=== PATIENT | male | born 1955 | race Hispanic/Latino ===

== ENCOUNTER 2018-06-18 21:28 | Emergency (ER) | payer MEDICAID, OTHER ==
[~2018-06-18 21:28] MED LIST: AMLO5TAB7 PO; ASPI-1005 PO; ASPI-555 PO; ATOR10 PO; FERR325T22 PO; FURO40TA5 PO; HYDR-4153 PO; INSU100I3 SQ; METO25 PO; TAMS0.4C32 PO
[2018-06-18] MEDS ORDERED: ACETAMINOPHEN-CODEINE ELIXIR 5 ML UDCUP ONE (22:01)
== END 2018-06-18 22:19 | disposition home or self-care (01) ==
LOC: EDH 21:28
DX: N39.0 Urinary tract infection, site not specified (principal); I10 Essential (primary) hypertension; E11.9 Type 2 diabetes mellitus without complications; Z89.511 Acquired absence of right leg below knee

== ENCOUNTER 2018-06-29 16:06 | Inpatient (IN) | payer OTHER ==
[~2018-06-29] VITALS: Ht 167.6 cm; Wt 93.0 kg
[2018-06-29 17:33] LABS: APPEARANCE,URINE Clear (CLEAR); BASOPHILS % (AUTO) 0.5 % (0.0-5.0); BILIRUBIN,URINE Negative (NEGATIVE); COLOR,URINE Dark Yellow (YELLOW); EOSINOPHILS % (AUTO) 0.8 % (0.0-8.0); GLUCOSE, URINE (UA) Negative (NEGATIVE); HEMATOCRIT 34.6 % (42-54); KETONES,URINE Negative (NEGATIVE); LEUKOCYTE ESTERASE ,URINE Trace (NEGATIVE); MEAN CORPUSCULAR HEMOGLOBIN 31.8 pg (27.0-33.0); MEAN CORPUSCULAR HGB CONC 35.3 g/dL (32.0-36.0); MONOCYTES % (AUTO) 8.9 % (3.0-13.0); NEUTROPHILS % (AUTO) 80.8 % (40.0-77.0); NITRATE,URINE Positive (NEGATIVE); OCCULT BLOOD,URINE Negative (NEGATIVE); PLATELET COUNT (AUTO) 271 K/uL (130-400); PROTEIN,URINE POS 2+ (NEGATIVE); RED BLOOD CELL COUNT(AUTO) 3.84 MIL/uL (4.50-6.20); RED CELL DISTRIBUTION WIDTH 12.8 % (11.0-15.5); WHITE BLOOD COUNT (AUTO) 7.6 K/uL (4.8-10.8)
[2018-06-29 17:41] LABS: CREATININE 1.4 mg/dL (0.5-1.5); POTASSIUM 4.2 mmol/L (3.5-5.1)
[2018-06-29] MEDS ORDERED: CEFTRIAXONE SODIUM 1 GM ONE (18:22)
[2018-06-29] MEDS ORDERED: SODIUM CHLORIDE 0.9% 1000ML 1,000 ML IV ONE (18:22)
[2018-06-29] MEDS ORDERED: SODIUM CHLORIDE 0.9% 50 ML IV ONE (18:22)
[2018-06-29 18:30] LABS: BACTERIA,URINE Rare /HPF (None Seen); RBC,URINE 0-1 /HPF (0-1)
[2018-06-29 18:31] LABS: SQUAMOUS EPITHELIAL CELL,UR Rare /HPF (0-2)
[2018-06-29 18:32] LABS: MUCUS,URINE Rare LPF (None Seen)
[2018-06-29] MEDS ORDERED: MORPHINE SULFATE 2 MG/ML 1ML SYG IV PRN (18:45)
[2018-06-29] MEDS ORDERED: ACETAMINOPHEN 325 MG TAB PO PRN (18:45)
[2018-06-29] MEDS ORDERED: ONDANSETRON HCL 4 MG/2 ML VIAL IV PRN (18:45)
[2018-06-29] MEDS ORDERED: ZOSYN 3.375GM+NS 50ML 50 ML IV SCH (21:00)
[2018-06-29 22:30] VITALS: BP 185/83
[2018-06-29] MEDS: SODIUM CHLORIDE 0.9% 1000ML 1,000 ML IV SCH (23:44)
[2018-06-29] MEDS: LEVOFLOXACIN 500 MG/D5W 100 ML 100 ML IV SCH (23:45)
[2018-06-30] VITALS (7 sets, daily range): BP systolic 132–187; BP diastolic 77–95
[2018-06-30 04:02] LABS: BASOPHILS % (AUTO) 0.7 % (0.0-5.0); EOSINOPHILS % (AUTO) 1.8 % (0.0-8.0); HEMATOCRIT 32.4 % (42-54); LYMPHOCYTES % (AUTO) 10.7 % (21.0-51.0); MEAN CORPUSCULAR HEMOGLOBIN 31.3 pg (27.0-33.0); MEAN CORPUSCULAR VOLUME 89.5 fL (79-99); MONOCYTES % (AUTO) 11.6 % (3.0-13.0); NEUTROPHILS % (AUTO) 75.2 % (40.0-77.0); PLATELET COUNT (AUTO) 211 K/uL (130-400); RED BLOOD CELL COUNT(AUTO) 3.62 MIL/uL (4.50-6.20); RED CELL DISTRIBUTION WIDTH 12.6 % (11.0-15.5); WHITE BLOOD COUNT (AUTO) 7.1 K/uL (4.8-10.8)
[2018-06-30 04:24] LABS: ALBUMIN 2.9 g/dL (3.5-5.0); BILIRUBIN,TOTAL 0.4 mg/dL (0.2-1.0); CREATININE 1.5 mg/dL (0.5-1.5); POTASSIUM 3.8 mmol/L (3.5-5.1); TOTAL PROTEIN, SERUM 5.8 g/dL (6.0-8.3)
[2018-06-30] MEDS: INSULIN HUMULIN R 100 UNIT/ML 3ML SQ SCH ×4 (07:20→20:24)
[2018-06-30] MEDS: ENOXAPARIN SODIUM 40 MG/0.4 ML SYRINGE SQ SCH (09:19)
[2018-06-30] MEDS: PANTOPRAZOLE SODIUM 40 MG TABLET.DR PO SCH (09:19)
[2018-06-30] MEDS: SODIUM CHLORIDE 0.9% 1000ML 1,000 ML IV SCH ×2 (14:52→20:22)
[2018-06-30] MEDS: CEFTRIAXONE SODIUM 1 GM IVP SCH (17:02)
[2018-06-30] MEDS: TAMSULOSIN HCL 0.4 MG CAP.ER.24H PO SCH (17:02)
[2018-06-30] MEDS: LEVOFLOXACIN 500 MG/D5W 100 ML 100 ML IV SCH (20:20)
[2018-07-01 04:00] VITALS: BP 147/80
[2018-07-01 04:15] LABS: MEAN CORPUSCULAR HEMOGLOBIN 31.4 pg (27.0-33.0); MEAN CORPUSCULAR HGB CONC 34.6 g/dL (32.0-36.0); MEAN CORPUSCULAR VOLUME 90.8 fL (79-99); PLATELET COUNT (AUTO) 230 K/uL (130-400); RED BLOOD CELL COUNT(AUTO) 3.74 MIL/uL (4.50-6.20); RED CELL DISTRIBUTION WIDTH 12.5 % (11.0-15.5); WHITE BLOOD COUNT (AUTO) 7.2 K/uL (4.8-10.8)
[2018-07-01 04:27] LABS: CREATININE 1.4 mg/dL (0.5-1.5); CRP QUANTITATIVE 6.5 mg/L (0.00-9.0); POTASSIUM 3.8 mmol/L (3.5-5.1)
[2018-07-01 05:19] LABS: ERYTHROCYTE SEDIMENTATION RATE 9 MM/HR (0-20)
[2018-07-01] MEDS: INSULIN HUMULIN R 100 UNIT/ML 3ML SQ SCH ×4 (06:01→21:00)
[2018-07-01 07:50] VITALS: BP 182/90
[2018-07-01] MEDS: ENOXAPARIN SODIUM 40 MG/0.4 ML SYRINGE SQ SCH (09:57)
[2018-07-01] MEDS: TAMSULOSIN HCL 0.4 MG CAP.ER.24H PO SCH (09:58)
[2018-07-01] MEDS: PANTOPRAZOLE SODIUM 40 MG TABLET.DR PO SCH (09:58)
[2018-07-01] MEDS: SODIUM CHLORIDE 0.9% 1000ML 1,000 ML IV SCH ×2 (10:09→23:51)
[2018-07-01 11:25] VITALS: BP 162/83
[2018-07-01] MEDS: CEFTRIAXONE SODIUM 1 GM IVP SCH (15:51)
[2018-07-01 16:00] VITALS: BP 164/87
[2018-07-01 19:42] VITALS: BP 143/77
[2018-07-01] MEDS: METOPROLOL TARTRATE 25 MG TAB PO SCH (20:28)
[2018-07-01] MEDS: LEVOFLOXACIN 500 MG/D5W 100 ML 100 ML IV SCH (20:28)
[2018-07-01] MEDS ORDERED: ATORVASTATIN CALCIUM 10 MG TABLET PO SCH (21:00)
[2018-07-01 23:38] VITALS: BP 174/86
[2018-07-02 04:00] VITALS: BP 145/79
[2018-07-02 05:07] LABS: HEMATOCRIT 34.2 % (42-54); MEAN CORPUSCULAR HEMOGLOBIN 31.4 pg (27.0-33.0); MEAN CORPUSCULAR VOLUME 89.6 fL (79-99); PLATELET COUNT (AUTO) 220 K/uL (130-400); RED BLOOD CELL COUNT(AUTO) 3.82 MIL/uL (4.50-6.20); RED CELL DISTRIBUTION WIDTH 12.8 % (11.0-15.5); WHITE BLOOD COUNT (AUTO) 6.6 K/uL (4.8-10.8)
[2018-07-02 05:16] LABS: CREATININE 1.4 mg/dL (0.5-1.5); POTASSIUM 3.6 mmol/L (3.5-5.1)
[2018-07-02 05:25] LABS: HEMOGLOBIN A1C 5.9 % (4.0-6.0)
[2018-07-02] MEDS: SODIUM CHLORIDE 0.9% 1000ML 1,000 ML IV SCH ×2 (06:43→16:27)
[2018-07-02] MEDS: INSULIN HUMULIN R 100 UNIT/ML 3ML SQ SCH ×3 (07:30→16:27)
[2018-07-02 08:00] VITALS: BP 149/76
[2018-07-02] MEDS ORDERED: AMLODIPINE BESYLATE 5 MG TAB PO SCH (09:00)
[2018-07-02] MEDS ORDERED: FUROSEMIDE 40 MG TABLET PO SCH (09:00)
[2018-07-02] MEDS ORDERED: ASPIRIN 81MG TAB.CHEW PO SCH (09:00)
[2018-07-02] MEDS: PANTOPRAZOLE SODIUM 40 MG TABLET.DR PO SCH (09:31)
[2018-07-02] MEDS: METOPROLOL TARTRATE 25 MG TAB PO SCH (09:31)
[2018-07-02] MEDS: TAMSULOSIN HCL 0.4 MG CAP.ER.24H PO SCH (09:32)
[2018-07-02] MEDS: ENOXAPARIN SODIUM 40 MG/0.4 ML SYRINGE SQ SCH (09:35)
[2018-07-02] MEDS: CEFTRIAXONE SODIUM 1 GM IVP SCH (09:35)
[2018-07-02 11:00] VITALS: BP 157/79
[2018-07-02] MEDS ORDERED: PHEN-948 PO (15:40)
[2018-07-02] MEDS ORDERED: TAMS-1 PO (15:40)
[2018-07-02] MEDS ORDERED: LEVO500T2 PO (15:40)
[2018-07-02] MEDS ORDERED: PHENAZOPYRIDINE HCL 200 MG TABLET PO SCH (15:45)
[2018-07-02 16:00] VITALS: BP 162/87
== END 2018-07-02 18:59 | disposition home or self-care (01) | DRG 699 ==
LOC: EDH 16:06 → EDHIP 16:07 → 4BH 22:14
PROVIDERS: ADMIT Hospitalist; ATTEND Hospitalist
PROC: 3E0234Z Introduction of Serum, Toxoid and Vaccine into Muscle, Percutaneous Approach (ICD-10-PCS; principal; 2018-06-30)
DX: T83.511A Infection and inflammatory reaction due to indwelling urethral catheter, initial encounter (principal); E87.1 Hypo-osmolality and hyponatremia; E44.0 Moderate protein-calorie malnutrition; N13.8 Other obstructive and reflux uropathy; N39.0 Urinary tract infection, site not specified; E87.8 Other disorders of electrolyte and fluid balance, not elsewhere classified; E11.21 Type 2 diabetes mellitus with diabetic nephropathy; E78.5 Hyperlipidemia, unspecified; E66.01 Morbid (severe) obesity due to excess calories; E11.22 Type 2 diabetes mellitus with diabetic chronic kidney disease; N18.3 Chronic kidney disease, stage 3 (moderate); E11.51 Type 2 diabetes mellitus with diabetic peripheral angiopathy without gangrene; E86.1 Hypovolemia; G20 Parkinson's disease; G47.00 Insomnia, unspecified; I12.9 Hypertensive chronic kidney disease with stage 1 through stage 4 chronic kidney disease, or unspecified chronic kidney disease; E11.65 Type 2 diabetes mellitus with hyperglycemia; R33.8 Other retention of urine; K59.00 Constipation, unspecified; Y84.6 Urinary catheterization as the cause of abnormal reaction of the patient, or of later complication, without mention of misadventure at the time of the procedure; N40.1 Benign prostatic hyperplasia with lower urinary tract symptoms; Z68.33 Body mass index [BMI] 33.0-33.9, adult; Z87.440 Personal history of urinary (tract) infections; Z89.511 Acquired absence of right leg below knee; Z23 Encounter for immunization; Y92.89 Other specified places as the place of occurrence of the external cause
CPT/HCPCS: 36415; 71045; 80048; 80053; 81001; 82040; 82948; 83036; 85025; 85027; 85651; 86140; 87040; 87088; 87804; A4218; G0008; J0696; J1650; J1956; J7030; Q2038